=== PATIENT | male | born 1985 | race Asian ===

== ENCOUNTER 2017-02-16 05:15 | Inpatient (IN) | payer MEDICAID ==
[~2017-02-16] VITALS: Ht 190.5 cm; Wt 127.0 kg
[2017-02-16] VITALS (17 sets, daily range): BP systolic 95–148
[2017-02-16 05:44] LABS: BASOPHILS % (AUTO) 0.4 % (0.0-2.0); EOSINOPHILS # (AUTO) 0.5 K/uL (0.0-0.4); EOSINOPHILS % (AUTO) 4.7 % (0.0-4.0); HEMATOCRIT 46.3 % (36-54); LYMPHOCYTES # (AUTO) 2.6 K/uL (1.0-5.5); LYMPHOCYTES % (AUTO) 26.8 % (20.5-51.5); MEAN CORPUSCULAR HEMOGLOBIN 29 pg (27-31); MEAN CORPUSCULAR HGB CONC 32 % (32-36); MEAN CORPUSCULAR VOLUME 90 fL (79.0-98.0); MONOCYTES # (AUTO) 0.5 K/uL (0.0-1.0); MONOCYTES % (AUTO) 5.2 % (1.7-9.3); NEUTROPHILS # (AUTO) 6.3 K/uL (1.8-7.7); NEUTROPHILS % (AUTO) 62.9 % (40.0-70.0); PLATELET COUNT (AUTO) 330 K/uL (130-430); RED BLOOD CELL COUNT(AUTO) 5.16 MIL/uL (4.2-6.2); RED CELL DISTRIBUTION WIDTH 11.9 % (9.0-15.0); WHITE BLOOD COUNT (AUTO) 9.9 K/uL (4.8-10.8)
[2017-02-16] MEDS ORDERED: ASPIRIN 81 MG TAB.CHEW PO ONE ×3 (05:45→11:30)
[2017-02-16 05:54] LABS: CREATININE 1.35 mg/dL (0.55-1.30); POTASSIUM 3.7 mmol/L (3.5-5.1)
[2017-02-16 05:57] LABS: PROTHROMBIN TIME 10.7 SECS (9.5-12.5)
[2017-02-16 05:59] LABS: ALBUMIN 4.2 g/dL (3.4-4.8); TOTAL BILIRUBIN 0.9 mg/dL (0.0-1.0); TOTAL PROTEIN, SERUM 8.1 g/dL (6.4-8.3)
[2017-02-16] MEDS ORDERED: NITROGLYCERIN 1 INCH (GM) OINT. TP ONE (06:30)
[2017-02-16] MEDS ORDERED: CLOPIDOGREL BISULFATE 75 MG TABLET PO ONE (06:30)
[2017-02-16] MEDS ORDERED: MORPHINE 4 MG/ML INJ. SYRINGE IVP ONE (07:15)
[2017-02-16] MEDS ORDERED: ONDANSETRON HCL 4 MG/2 ML VIAL IVP ONE (07:15)
[2017-02-16 07:17] LABS: BILIRUBIN,URINE NEGATIVE (NEGATIVE); BLOOD, URINE 3+ (NEGATIVE); CLARITY/URINE CLEAR (CLEAR); COLOR,URINE YELLOW (YELLOW); GLUCOSE,URINE NEGATIVE (NEGATIVE); KETONES,URINE NEGATIVE (NEGATIVE); LEUKOCYTE ESTERASE ,URINE NEGATIVE (NEGATIVE); NITRITE, URINE NEGATIVE (NEGATIVE); PH,URINE 5.5 (5.0-8.0); PROTEIN URINE TRACE (NEGATIVE); UROBILINOGEN,URINE 0.2 (0.2-1.0)
[2017-02-16 07:23] LABS: BARBITURATE, URINE NEGATIVE (NEG <=200); BENZODIAZEPINE, URINE NEGATIVE (NEG <=150); CANNABINOID, URINE NEGATIVE (NEG <=50); COCAINE, URINE NEGATIVE (NEG <=150); METHAMPHETAMINES SCREEN,URINE NEGATIVE (NEG <=500); OPIATE, URINE NEGATIVE (NEG <=100); PHENCYCLIDINE SCREEN,URINE NEGATIVE (NEG <=25); UR TRICYCLIC ANTIDEPRESSANTS NEGATIVE (NEG <=300); URINE AMPHETAMINE NEGATIVE (NEG <=500); URINE METHADONE NEGATIVE (NEG <=200); URINE OXYCODONE SCREEN NEGATIVE (NEG <=100); URINE PROPOXYPHENE SCREEN NEGATIVE (NEG <=300)
[2017-02-16] MEDS ORDERED: AMIODARONE HCL 150 MG/3ML VIAL ONE (07:30)
[2017-02-16] MEDS ORDERED: METOPROLOL TARTRATE 5 MG/5 ML VIAL ONE (07:31)
[2017-02-16 07:42] LABS: BACTERIA,URINE RARE /HPF (None Seen); MUCUS,URINE 3+ /LPF (None Seen); RBC,URINE 20-50 /HPF (0-3); WBC,URINE 0-3 /HPF (0-3)
[2017-02-16] MEDS ORDERED: AMIODARONE HCL 150 MG in D5W 100 ML IV ONE (07:45)
[2017-02-16] MEDS ORDERED: METOPROLOL TARTRATE 5 MG/5 ML VIAL IVP ONE (07:45)
[2017-02-16] MEDS ORDERED: ALPRAZolam 0.25 MG TABLET PO PRN (08:15)
[2017-02-16] MEDS ORDERED: MORPHINE 4 MG/ML INJ. SYRINGE IVP PRN (08:15)
[2017-02-16] MEDS ORDERED: ONDANSETRON HCL 4 MG/2 ML VIAL IVP PRN (08:15)
[2017-02-16] MEDS ORDERED: ACETAMINOPHEN 325 MG TABLET PO PRN (08:15)
[2017-02-16] MEDS ORDERED: PANTOPRAZOLE SODIUM 40 MG TAB PO SCH (09:00)
[2017-02-16] MEDS: MORPHINE 2 MG/ML INJ. SYRINGE IVP PRN ×2 (09:47→15:26)
[2017-02-16] MEDS: NACL 0.9% 1,000 ML IV SCH ×2 (10:06→20:22)
[2017-02-16] MEDS ORDERED: METF-303 PO (10:24)
[2017-02-16] MEDS ORDERED: FENO54TA4 PO (10:24)
[2017-02-16] MEDS ORDERED: GABA-531 PO (10:24)
[2017-02-16] MEDS ORDERED: *LOVENOX 1MG/KG Q12H/PHARMACY XX ONE (11:00)
[2017-02-16] MEDS ORDERED: INSULIN ASPART 100 UNITS/ML, 10 ML VIAL (NovoLOG) SUBCUT PRN (11:15)
[2017-02-16] MEDS ORDERED: FENOFIBRATE MICRONIZED PO SCH (11:15)
[2017-02-16] MEDS ORDERED: GLUCOSE 15 GM GEL (in 37.5 GM TUBE) PO PRN ×2 (11:30)
[2017-02-16] MEDS ORDERED: DEXTROSE 50%-WATER 50 ML DISP.SYRIN IVP PRN ×2 (11:30)
[2017-02-16] MEDS ORDERED: metFORMIN HCL 500 MG TABLET PO ONE (11:45)
[2017-02-16] MEDS ORDERED: METOPROLOL SUCCINATE 25 MG TAB.SR.24H (TOPROL XL) PO ONE (11:45)
[2017-02-16] MEDS ORDERED: ATORVASTATIN 20 MG TABLET PO ONE (11:45)
[2017-02-16] MEDS ORDERED: GABAPENTIN 300 MG CAPSULE PO ONE (11:45)
[2017-02-16] MEDS ORDERED: ENOXAPARIN SODIUM 120 MG/0.8 ML SYRINGE SUBCUT ONE (12:00)
[2017-02-16] MEDS ORDERED: cefTRIAXone 1 GM in D5W 50 ML IV SCH (14:00)
[2017-02-16] MEDS: IPRATROPIUM/ALBUTEROL SULFATE 3 ML AMPUL.NEB INH SCH ×2 (15:51→23:00)
[2017-02-16] MEDS ORDERED: metFORMIN HCL 500 MG TABLET PO SCH (18:00)
[2017-02-16] MEDS ORDERED: GABAPENTIN 300 MG CAPSULE PO SCH (21:00)
[2017-02-16] MEDS ORDERED: ENOXAPARIN SODIUM 120 MG/0.8 ML SYRINGE SUBCUT SCH (21:00)
[2017-02-17] VITALS (9 sets, daily range): BP systolic 94–137
[2017-02-17] MEDS: MORPHINE 2 MG/ML INJ. SYRINGE IVP PRN ×2 (00:02→06:24)
[2017-02-17] MEDS ORDERED: METOPROLOL SUCCINATE 25 MG TAB.SR.24H (TOPROL XL) PO ONE ×2 (00:45→00:56)
[2017-02-17 03:21] LABS: BASOPHILS % (AUTO) 0.5 % (0.0-2.0); EOSINOPHILS # (AUTO) 0.3 K/uL (0.0-0.4); EOSINOPHILS % (AUTO) 3.4 % (0.0-4.0); HEMATOCRIT 38.5 % (36-54); HEMOGLOBIN 12.9 g/dL (14.0-18.0); LYMPHOCYTES # (AUTO) 1.8 K/uL (1.0-5.5); LYMPHOCYTES % (AUTO) 21.5 % (20.5-51.5); MEAN CORPUSCULAR HEMOGLOBIN 30 pg (27-31); MEAN CORPUSCULAR HGB CONC 34 % (32-36); MEAN CORPUSCULAR VOLUME 89 fL (79.0-98.0); MONOCYTES # (AUTO) 0.6 K/uL (0.0-1.0); MONOCYTES % (AUTO) 6.6 % (1.7-9.3); NEUTROPHILS # (AUTO) 5.8 K/uL (1.8-7.7); PLATELET COUNT (AUTO) 243 K/uL (130-430); RED BLOOD CELL COUNT(AUTO) 4.32 MIL/uL (4.2-6.2); RED CELL DISTRIBUTION WIDTH 11.6 % (9.0-15.0); WHITE BLOOD COUNT (AUTO) 8.5 K/uL (4.8-10.8)
[2017-02-17 03:27] LABS: CALCIUM 7.6 mg/dL (8.4-11.0); CREATININE 1.26 mg/dL (0.55-1.30)
[2017-02-17] MEDS: IPRATROPIUM/ALBUTEROL SULFATE 3 ML AMPUL.NEB INH SCH (07:31)
[2017-02-17] MEDS ORDERED: METOPROLOL SUCCINATE 25 MG TAB.SR.24H (TOPROL XL) PO SCH (09:00)
[2017-02-17] MEDS ORDERED: ATORVASTATIN 20 MG TABLET PO SCH (09:00)
[2017-02-17] MEDS ORDERED: ASPIRIN 81 MG TAB.CHEW PO SCH (09:00)
== END 2017-02-17 08:00 | disposition short-term general hospital (02) | DRG 190 ==
LOC: SED 05:15 → SIC 08:08
PROVIDERS: ADMIT Internal Medicine; ATTEND Internal Medicine
DX: I21.4 Non-ST elevation (NSTEMI) myocardial infarction (principal); J18.9 Pneumonia, unspecified organism; E11.42 Type 2 diabetes mellitus with diabetic polyneuropathy; E78.5 Hyperlipidemia, unspecified; Z82.49 Family history of ischemic heart disease and other diseases of the circulatory system; Z79.84 Long term (current) use of oral hypoglycemic drugs; Z79.899 Other long term (current) drug therapy; I24.9 Acute ischemic heart disease, unspecified
CPT/HCPCS: 36415; 71010; 76770; 80048; 80053; 80307; 81000-TC; 82962; 83880; 84484; 85025; 85379; 85610-TC; 85730-TC; 87040-TC; 87081; 93005; 93306; 94640; 96374; 96375; 99285; J0282; J0696; J1650; J1815; J2270; J2405; J3490; J7030; J7060